=== PATIENT | female | born 1970 | race Caucasian/White ===

== ENCOUNTER 2017-01-10 17:21 | Emergency (ER) | payer BC ==
[~2017-01-10] VITALS: Ht 175.3 cm; Wt 14.8 kg
[~2017-01-10 17:21] MED LIST: ASPIRIN EC325 MG PO; ENDOCET 5-3251 EACH PO; IBUPROFEN800 MG PO; IRON325 M1 PO; MOTRIN800 MG PO; NAPROXEN500 MG PO; NORCO 5/3251 TABLET PO; NORCO 7.5/321 TABLET PO; SENNA PLUS TAB1 EACH PO; VALIUM5 MG PO
[2017-01-10 18:19] LABS: HEMATOCRIT 38.9 % (36.0-46.0); MCH 29.8 PG (29.0-34.0); MCHC 34.4 G/DL (30.0-36.0); MCV 86.4 FL (83-99); MEAN PLAT.VOLUME 9.8 uM^3 (9.5-12.4); PLATELET COUNT 228 K/uL (156-360); RBC DIS.WIDTH-CV 12.1 % (11.8-14.6); RBC DIS.WIDTH-SD 38.6 % (39-53); WHITE BLOOD COUNT 6.6 K/uL (4.1-10.2)
[2017-01-10 19:30] LABS: ANION GAP 9 MEQ/L (2-14); CHLORIDE 104 MEQ/L (99-109); SAMPLE HEMOLYSIS CHECK 0; SAMPLE ICTERIC CHECK 0; SAMPLE LIPEMIA CHECK 0; SODIUM 138 MEQ/L (136-147)
[2017-01-10 19:36] LABS: GFR ESTIMATE (CALCULATED) > 59 mL/min/; GLUCOSE 83 mg/dL (70-99); UREA NITROGEN (BUN) 16 mg/dL (9-23)
[2017-01-10 19:40] LABS: QUANTITATIVE HCG < 4.0 MIU/ML; TROP-I INTERPRETATION NEGATIVE; TROPONIN-I < 0.01 ng/mL (0.0-0.30)
[2017-01-10 20:58] VITALS: BP 137/82
== END 2017-01-10 21:00 | disposition home or self-care (01) ==
LOC: EME 17:21
PROVIDERS: Emergency Medicine
DX: R55 Syncope and collapse (principal); S09.90XA Unspecified injury of head, initial encounter; M54.2 Cervicalgia; W18.2XXA Fall in (into) shower or empty bathtub, initial encounter; Y93.E1 Activity, personal bathing and showering; Z88.0 Allergy status to penicillin; Z87.891 Personal history of nicotine dependence
CPT/HCPCS: 70450; 72125; 80048; 84484; 84702; 85027; 93005; 99281; 99285

== ENCOUNTER 2017-08-15 17:28 | Emergency (ER) | payer BC ==
[~2017-08-15] VITALS: Ht 175.3 cm; Wt 109.8 kg
[2017-08-15] MEDS ORDERED: NORCO 5/3251 TABLET PO (18:44)
[2017-08-15 18:55] VITALS: BP 136/73
== END 2017-08-15 18:55 | disposition home or self-care (01) ==
LOC: EME 17:28
DX: S22.32XA Fracture of one rib, left side, initial encounter for closed fracture (principal); W18.30XA Fall on same level, unspecified, initial encounter; Z72.0 Tobacco use
CPT/HCPCS: 71101; 99281; 99284